=== PATIENT | male | born 1985 | race Caucasian/White ===

== ENCOUNTER 2018-07-24 15:15 | Emergency (ER) | payer OTHER, SELFPAY ==
[2018-07-24 15:22] VITALS: TEMP 98.1
--- NOTE | 2018-07-24 15:47 | ED PDOC ---
Upper Extremity Pain/Injury Time Seen by Provider: 07/24/18 15:35 Chief Complaint (Nursing): Upper Extremity Problem/Injury Chief Complaint (Provider): Upper Extremity Problem/Injury History Per: Patient History/Exam Limitations: no limitations Onset/Duration Of Symptoms: Days (x 2) Current Symptoms Are (Timing): Still Present Quality: "Pain" Exacerbating Factor(s): Movement Additional Complaint(s): 32 year old male presents to the ED with left elbow pain and back pain. Patient reports he slipped and fell 1 month ago and has had pain since. Pain in elbow is worse with movement and bending over causes back pain. 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 Patient has taken Advil for his pain with some relief but none today. Denies LOC, head injury, urinary symptoms, incontinence, saddles anesthesias, neck pain, CP, shortness of breath. PMD: none provided Past Medical History Reviewed: Historical Data, Nursing Documentation, Vital Signs Vital Signs: Last Vital Signs Temp 98.1 F 07/24/18 15:20 Pulse 61 07/24/18 15:20 Resp 18 07/24/18 15:20 BP 148/86 07/24/18 15:20 Pulse Ox 100 07/24/18 15:20 - Medical History PMH: No Chronic Diseases - Surgical History Surgical History: No Surg Hx - Family History Family History: States: Unknown Family Hx - Immunization History Hx Tetanus Toxoid Vaccination: No Hx Influenza Vaccination: No Hx Pneumococcal Vaccination: No - Home Medications Home Medications: Ambulatory Orders Medication Instructions Recorded Cyclobenzaprine HCl [Flexeril] 10 mg PO HS #7 tab 05/15/15 Naproxen 500 mg PO BID PRN #20 tab 05/15/15 Ibuprofen 1 tab PO Q8 PRN #30 tablet 01/12/16 Tramadol HCl [Ultram] 1 tab PO Q4 PRN #20 tab 01/12/16 Cyclobenzaprine [Flexeril] 5 mg PO Q8H PRN #21 tab 07/24/18 Ibuprofen [Motrin Tab] 600 mg PO Q8H PRN #30 tab 07/24/18 Lidocaine 5% [Lidoderm] 1 ea TD Q12H PRN #10 patch 07/24/18 - Allergies Allergies/Adverse Reactions: Allergies Allergy/AdvReac Type Severity Reaction Status Date / Time No Known Allergies Allergy Verified 05/15/15 19:09 Review of Systems ROS Statement: Except As Marked, All Systems Reviewed And Found Negative Genitourinary Male: Negative for: Dysuria, Frequency, Incontinence Musculoskeletal: Positive for: Arm Pain (left elbow pain), Back Pain. Negative for: Neck Pain Physical Exam - Reviewed Nursing Documentation Reviewed: Yes Vital Signs Reviewed: Yes - Physical Exam Appears: Positive for: Non-toxic, No Acute Distress Head Exam: Positive for: ATRAUMATIC, NORMAL INSPECTION, NORMOCEPHALIC Skin: Positive for: Normal Color, Warm, Dry Eye Exam: Positive for: EOMI, Normal appearance, PERRL Neck: Positive for: Normal, Painless ROM, Supple Cardiovascular/Chest: Positive for: Regular Rate, Rhythm Respiratory: Positive for: CNT, Normal Breath Sounds Pulses-Radial (L): 2+ Pulses-Radial (R): 2+ Back: Positive for: Normal Inspection, Other (mild left sided lumbar paraspinal tenderness). Negative for: L CVA Tenderness, R CVA Tenderness, Vertebral Tenderness, Decreased ROM Extremity: Positive for: Normal ROM, Tenderness (on left elbow ), Capillary Refill (<2s), Other (sensation intact at extremities). Negative for: Deformity, Swelling (redness or induration) Neurologic/Psych: Positive for: Alert, Oriented, Gait (steady). Negative for: Motor/Sensory Deficits - ECG O2 Sat by Pulse Oximetry: 100 (RA) Pulse Ox Interpretation: Normal Medical Decision Making Medical Decision Makin:44 --Left elbow x-ray --Toradol 60 mg IM 16:03 Left elbow x-ray FINDINGS: BONES: No acute fracture or destructive bony lesion identified. JOINTS: No subluxation or dislocation appreciated. SOFT TISSUES: Normal. JOINT EFFUSION: None. OTHER FINDINGS: None IMPRESSION: Unremarkable radiographs of the left elbow. Patient reports decreased pain after medications. 16:23 --Results were discussed with patient. Will be given referral to outpatient orthopedic follow up. Elbow wrapped in DELFINO bandage. --Patient given flexeril and a lidoderm patch for back on discharge. Plan of care discussed with patient, and strict instructions given regarding prescriptions, importance of follow up, and signs to return to Emergency Department, to include chest pain, SOB, worsening pain, or any other new/worsening symptoms. Patient verbalizes understanding of discussion. Patient A&Ox3, ambulating with steady gait, stable for discharge home. Scribe Attestation: Documented by Marlena Raines, acting as a scribe for Ira Mera PA-C Provider Scribe Attestation: All medical record entries made by the Scribe were at my direction and personally dictated by me. I have reviewed the chart and agree that the record accurately reflects my personal performance of the history, physical exam, medical decision making, and the department course for this patient. I have also personally directed, reviewed, and agree with the discharge instructions and disposition. Disposition - Clinical Impression Clinical Impression: Elbow pain, left, Muscle strain - Patient ED Disposition Is Patient to be Admitted: No - Disposition Referrals: [facility] [Outside] [facility] [Outside] Toino Mckeon MD [Staff Provider] - Disposition Time: 16:23 Condition: IMPROVED Additional Instructions: Heating pads on back Back stretches Take ibuprofen every 8 hours as needed for pain Take flexeril every 8 hours as needed for pain Use lidoderm patches 12 hours on, 12 hours off Followup with orthopedic doctor within 2 days Followup with primary doctor within 2 days Return to ER for any new/worsening symptoms Prescriptions: Cyclobenzaprine [Flexeril] 5 mg PO Q8H PRN #21 tab PRN Reason: Pain, Mild (1-3) Ibuprofen [Motrin Tab] 600 mg PO Q8H PRN #30 tab PRN Reason: Pain, Moderate (4-7) Lidocaine 5% [Lidoderm] 1 ea TD Q12H PRN #10 patch PRN Reason: Pain, Moderate (4-7) Instructions: Muscle Strain, Back Exercises Forms: [employer] (K[place]), [facility] School/Work Excuse
--- NOTE | 2018-07-24 16:07 | RAD ---
Date of service: 07/24/2018 PROCEDURE: Radiographs of the left elbow. HISTORY: trauma r/o fracture COMPARISON: No prior. FINDINGS: BONES: No acute fracture or destructive bony lesion identified. JOINTS: No subluxation or dislocation appreciated. SOFT TISSUES: Normal. JOINT EFFUSION: None. OTHER FINDINGS: None IMPRESSION: Unremarkable radiographs of the left elbow.
[2018-07-24] MEDS ORDERED: Lidocaine 5% Patch TD STA (16:23)
[2018-07-24 16:33] VITALS: BP 142/83; PULSE 73; RESP 16
[2018-07-24] MEDS ORDERED: Lidocaine 5% Patch TD ONE (16:35)
[2018-07-25 11:25] VITALS: O2SAT 100
== END 2018-07-24 16:32 | disposition home or self-care (01) ==
LOC: H.ER 15:15
DX: M25.522 Pain in left elbow (principal)
CPT/HCPCS: 73080; 96372; 99283; J1885